=== PATIENT | male | born 1985 | race Caucasian/White ===

== ENCOUNTER 2017-09-06 10:05 | Day surgery (SDC) | payer BC ==
[2017-09-03 08:19] VITALS: BMI 29.0
--- NOTE | 2017-09-06 05:00 | HP ---
HISTORY AND PHYSICAL CHIEF COMPLAINT: Left facial mass. HISTORY OF PRESENT ILLNESS: This patient is a 31-year-old male who was recently seen in my office complaining of having a lump in the left side of his face. The patient states that there has been there for many years. MMODL / IJN: [id number] /
--- NOTE | 2017-09-06 05:24 | HP ---
HISTORY AND PHYSICAL CHIEF COMPLAINT: Left facial mass. HISTORY OF PRESENT ILLNESS: This patient is a pleasant 31-year-old male who was recently referred to my office for evaluation of a lump in the left side of his face. The patient states that the lump has been there for many years, but recently he feels that it has gotten larger. It does not cause any pain. The patient notes that he quit smoking approximately 2 months ago. At the time that the patient is seen in my office, clinical examination of the facial skin revealed the patient had a 1.5 to 2 cm firm, well-circumscribed, nonfluctuant, mass/lesion located near the left nasal labial fold. It was recommended the patient undergo excision of this lesion under general anesthesia. PAST MEDICAL HISTORY: Past medical history reveals that the patient has no known allergies to medications. Current medications include Elavil and HCTZ. There is no history of asthma or diabetes mellitus. The patient has a history of hypertension. Previous surgeries include bilateral myringotomy with insertion of ventilation tubes x4 and a colonoscopy. REVIEW OF SYSTEMS: Review of systems is positive with respect to the cardiovascular system for hypertension. The remainder of the review of systems is unremarkable. PHYSICAL EXAMINATION: This patient is a 31-year-old male who is alert and cooperative, HEENT EXAMINATION: Patient is normocephalic. Tympanic membranes are normal. Middle ear space is free of any fluid or infection. Pupils are equal, round and react to light and accommodation. Extraocular movements are within normal limits. Intranasal examination reveals moderate to severe septal deviation with compensatory hypertrophy of the inferior turbinates. Examination of oropharynx, palpation of the neck are negative for any suspicious masses or lymphadenopathy. Examination of the facial skin reveals a 1.5 to 2 cm round, well-circumscribed, nonfluctuant, firm mass/lesion located near the left nasal labial fold. The remainder of the head and neck exam is within normal limits. CHEST/CARDIOVASCULAR: Both lung burdick are clear to percussion and auscultation. The patient is in regular sinus rhythm. S1, S2 are present without any murmurs, S3s or S4s. Peripheral pulses are bilaterally symmetrical and within normal limits. ABDOMEN: There is no evidence of any masses, megaly or tenderness. The abdomen is soft. Skin is unremarkable. Musculoskeletal and neurological are within normal limits. RECTAL EXAM: The rectal exam is deferred at this time because the patient has this done on a regular basis at his family physician's office. The remainder of physical exam is essentially unremarkable. IMPRESSION: Left facial mass/lesion. PLAN: The patient is scheduled to undergo excision of left facial mass/lesion under general anesthetic in a.m. ATTENTION RNS: I have ordered for this patient to receive 1000 mg of Ofirmev and 2 grams of Ancef IV to be given once an intravenous line has been established. If the pharmacy department sends any other pre-surgical prophylactic antibiotic to the presurgical area for this patient, please cancel that order. Return the medication to the pharmacy department and make sure that the patient's account is credited appropriately. I have discussed the risks, benefits and alternative therapies for the above-mentioned procedure and for both sedation/analgesia as well as necessary blood product administration, if indicated, as they pertain to this patient. The patient has indicated his or her understanding and acceptance of the risks and procedures discussed. MMHEATHERL / DEDEN: [id number] /
[~2017-09-06 10:05] MED LIST: DEXAMETHASONE SOD PHOSPHATE 10 MG/ML 1 ML VIAL IV ONE; LACTATED RINGERS 1,000 ML IV SCH; LIDOCAINE 1% 20 ML VIAL (10MG/ML) FOR IV START INTRADERMA PRN; Pre Op ABX Message 1 EACH MISC MISCELLANE ONE; ceFAZolin IN SWFI 2 GM/20 ML SYRINGE IVP ONE
[2017-09-06] MEDS ORDERED: ACETAMINOPHEN IV (For NPO) 1,000 MG in EMPTY BAG 1 BAG IVPB ONE (11:35)
[2017-09-06] MEDS ORDERED: ceFAZolin IN SWFI 2 GM/20 ML SYRINGE IVP ONE (11:35)
[2017-09-06] MEDS ORDERED: MIDAZOLAM 2 MG/2 ML VIAL ONE (11:44)
[2017-09-06] MEDS ORDERED: SUCCINYLCHOLINE CHLORIDE 100 MG/5 ML SYR IV ONE (11:44)
[2017-09-06] MEDS ORDERED: fentaNYL (PF) 50 MCG/ML 2 ML AMP ONE (11:44)
[2017-09-06] MEDS ORDERED: PROPOFOL 10 MG/ML 20 ML VIAL IV ONE (11:44)
[2017-09-06] MEDS ORDERED: LIDOCAINE 1% INJ 10MG/ML (20 ML MDV) ONE (11:44)
[2017-09-06] MEDS ORDERED: SODIUM CHLORIDE 0.9% 50 ML with ceFAZolin 2,000 MG IV ONE ×4 (11:53)
[2017-09-06] MEDS ORDERED: LIDOCAINE 1%-EPI 1:100,000 20 ML VIAL SQ ONE (12:17)
[2017-09-06] MEDS: HYDROmorphone 0.5 MG/0.5 ML SYRINGE IVP PRN ×2 (13:53→14:04)
[2017-09-06 13:59] VITALS: TEMP 97.7
[2017-09-06] MEDS ORDERED: LACTATED RINGERS 1,000 ML IV ONE (14:17)
[2017-09-06 14:47] VITALS: RESP 18
[2017-09-06 15:23] VITALS: BP 147/81; PULSE 88
--- NOTE | 2017-09-07 05:04 | OP ---
OPERATIVE REPORT DATE OF SURGERY: 09/06/2017 PREOPERATIVE DIAGNOSIS: A 1.5 to 2 cm left facial mass. POSTOPERATIVE DIAGNOSIS: A 1.5 to 2 cm left facial mass, final pathology pending. ANESTHESIA: General. OPERATIVE PROCEDURE: Complete excision of a 1.5 to 2 cm left facial mass/lesion. OPERATING SURGEON: Dr. Disla. COMPLICATIONS: None. ESTIMATED BLOOD LOSS: Less than 20 mL. OPERATIVE PROCEDURE: The patient was placed on operating table in supine position. After uneventful induction and endotracheal intubation, satisfactory general anesthesia was obtained. Next the patient's left vinicio face was prepped and draped in the usual and customary fashion. Following this, the lesion in question was located near the left nasolabial fold was examined and palpated. The proposed elliptical incision was outlined using a [employer] marking pen. The design of the incision was such that the skin would be left overlying the mass and would be used for retraction. Next, using a #15 scalpel blade, the incision was made through skin only following the previously outlined incision marking. Next using a combination of sharp and blunt dissection with a sharp mosquito stat and a #15 scalpel, the skin was subsequently elevated off of the superior aspect of the mass in question. Again, a portion of the overlying skin was left attached to the mass for retraction. The mass, which appeared to be somewhat cystic, was carefully dissected away from the surrounding tissue using a mosquito hemostat and peanuts. The mass was somewhat adherent to the surrounding tissue because of local inflammatory reaction. Care was taken not to rupture the mass. The mass was completely excised and sent to pathology in formalin for permanent sectioning. The wound defect extended down to the level of the facial muscles. The wound defect was closed in multiple layers using 4-0 rapid absorbing Vicryl to close the deep tissue layers and 4-0 rapid absorbing Vicryl suture in interrupted buried fashion to close the fatty tissue layer. The skin layers were further approximated using 5-0 Vicryl in interrupted buried fashion. Next, it was elected to use surgical skin maura to further approximate the skin edges in a cosmetic fashion. Dermabond was lightly applied to the incision for further wound strength. At this point, the procedure was terminated. There were no intraoperative complications. The patient tolerated the procedure well and was returned to recovery room in satisfactory condition. Final pathology is pending. MMODL / IJN: [id number] /
== END 2017-09-06 15:44 | disposition home or self-care (01) ==
LOC: OR 10:05
PROVIDERS: ATTEND Otolaryngology
DX: L72.0 Epidermal cyst (principal); I10 Essential (primary) hypertension; Z79.899 Other long term (current) drug therapy; Z87.891 Personal history of nicotine dependence
CPT/HCPCS: 88304; 11442; 12051; J2250; J1100; J2001; J3010; J0690; J0131; J0330; J2704; J1170